=== PATIENT | male | born 1995 | race Caucasian/White ===

== ENCOUNTER 2021-10-16 09:03 | Emergency (ER) | payer MEDICAID ==
[2021-10-16 10:06] LABS: HEMOGLOBIN 16.4 gm/dl (14.0-17.5); RED BLOOD COUNT 5.76 M/UL (4.20-5.50); WHITE BLOOD COUNT 10.2 K/UL (4.5-11.0)
[2021-10-16 10:26] LABS: BUN/CREATININE RATIO 9 (0-10)
[2021-10-16] MEDS ORDERED: FLOMAX0.4 MG PO (10:35)
[2021-10-16] MEDS ORDERED: TORADOL 10 MG T10 MG PO (10:35)
[2021-10-16] MEDS ORDERED: ZOFRAN 4 MG TAB4 MG PO (10:35)
== END 2021-10-16 10:50 | disposition home or self-care (01) ==
LOC: ER1 09:03
PROVIDERS: Physician Assistant
DX: N13.2 Hydronephrosis with renal and ureteral calculous obstruction (principal); F17.200 Nicotine dependence, unspecified, uncomplicated; I10 Essential (primary) hypertension; K21.9 Gastro-esophageal reflux disease without esophagitis
CPT/HCPCS: 80053; 81001; 85025; 96374; 96375; 99284; J1885; J2405